=== PATIENT | female | born 1960 | race Two or more races ===

== ENCOUNTER 2023-04-08 08:46 | Emergency (ER) | payer OTHER ==
[~2023-04-08] VITALS: Ht 149.9 cm; Wt 56.7 kg
== END 2023-04-08 11:14 | disposition home or self-care (01) ==
LOC: ER 08:46
DX: S43.492A Other sprain of left shoulder joint, initial encounter (principal)

== ENCOUNTER 2023-04-10 12:21 | Emergency (ER) | payer OTHER ==
[~2023-04-10] VITALS: Ht 149.9 cm; Wt 56.7 kg
== END 2023-04-10 18:18 | disposition home or self-care (01) ==
LOC: ER 12:21
DX: M75.52 Bursitis of left shoulder (principal)
CPT/HCPCS: 96365; 96372; 99282; J1100; J1885 ×2